=== PATIENT | female | born 1995 | race Caucasian/White ===

== ENCOUNTER 2017-09-20 11:39 | Emergency (ER) | payer OTHER ==
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
[2017-09-20 15:43] VITALS: BP 123/84
== END 2017-09-20 15:39 | disposition home or self-care (01) ==
LOC: ED 11:39
DX: Z11.4 Encounter for screening for human immunodeficiency virus [HIV] (principal); Z91.410 Personal history of adult physical and sexual abuse
CPT/HCPCS: 36415; 86703; 99282

== ENCOUNTER → 2019-02-02 22:57 | Emergency (ER) | payer OTHER ==
--- NOTE | 2019-02-02 23:41 | ED ---
Palpitations / Dysrhythmia - HPI Summary HPI Summary: The patient is a 23 y/o F presenting to [facility] with a chief complaint of heart palpitations tonight. She reports that she's been busy at work so her eating habits have been unhealthy. She states that today she took caffeine pills to stay awake at work, and then she wanted to go to sleep when she got home so she took prescribed Hydroxyzine, but then she began to have heart palpitations. She is feeling better in the ED. She denies CP, SOB, and dizziness. No recent drug use. No other hx. - History of Current Complaint Chief Complaint: EDDysrhythmPalp Time Seen by Provider: 02/02/19 23:34 Hx Obtained From: Patient Onset/Duration: Sudden Onset, Lasting Hours, Resolved Severity Initially: Moderate Severity Currently: None Character: Fast Aggravating: Nothing Alleviating: Nothing - Allergy/Home Medications Allergies/Adverse Reactions: Allergies Allergy/AdvReac Type Severity Reaction Status Date / Time No Known Allergies Allergy Verified 02/02/19 23:09 PMH/Surg Hx/FS Hx/Imm Hx Endocrine/Hematology History: Denies: Hx Diabetes Cardiovascular History: Denies: Hx Hypertension Sensory History: Denies: Hx Deafness Opthamlomology History: Denies: Hx Legally Blind EENT History: Denies: Hx Deafness - Surgical History Surgery Procedure, Year, and Place: none Infectious Disease History: No Infectious Disease History: Denies: Traveled Outside the US in Last 30 Days - Family History Known Family History: Negative: Cardiac Disease, Hypertension, Diabetes - Social History Alcohol Use: None Hx Substance Use: No Substance Use Type: Reports: None Smoking Status (MU): Unknown if Ever Smoked Do You Chew or Dip Tobacco: No Have You Chewed or Dipped Tobacco in the LAST YEAR: No Have You Smoked in the Last Year: No Review of Systems Positive: Palpitations. Negative: Chest Pain Negative: Shortness Of Breath Positive: Other - change in diet Neurological: Other - NEGATIVE: dizziness All Other Systems Reviewed And Are Negative: Yes Physical Exam - Summary Physical Exam Summary: Appearance: Well appearing, no pain distress Skin: warm, dry, reflects adequate perfusion Head/face: normal Eyes: EOMI, GIOVANI ENT: normal Neck: supple, non-tender Respiratory: CTA, breath sounds present Cardiovascular: RRR, pulses symmetrical Abdomen: non-tender, soft Musculoskeletal: normal, strength/ROM intact Neuro: normal, sensory motor intact, A&Ox3 Triage Information Reviewed: Yes Vital Signs On Initial Exam: Initial Vitals Temp Pulse Resp BP Pulse Ox 97.4 F 80 16 106/87 99 02/02/19 23:00 02/02/19 23:00 02/02/19 23:00 02/02/19 23:00 02/02/19 23:00 Vital Signs Reviewed: Yes Diagnostics - Vital Signs Vital Signs Temp Pulse Resp BP Pulse Ox 02/02/19 23:00 97.4 F 80 16 106/87 99 - Laboratory Lab Statement: Any lab studies that have been ordered have been reviewed, and results considered in the medical decision making process. - EKG 2306 Cardiac Rate: NL - 75 BPM EKG Rhythm: Sinus Rhythm Summary of EKG Findings: No ST elevations Course/Dx - Course Assessment/Plan: The patient is a 23 y/o F presenting to [facility] with a chief complaint of heart palpitations tonight after not eating well lately and consuming caffeine pills early in the day followed by Hydroxyzine at night. Upon physical exam, there are no acute abnormalities. She declines blood work at this time. EKG is normal. Since she is feeling better, she will be discharged home at this time. She is diagnosed with heart palpitations and drug reaction. She agrees with plan for discharge and understands need for return to the ED for any new or worsening symptoms. - Diagnoses Differential Diagnosis/HQI/PQRI: Positive: Hyperventilation, Panic Disorder Provider Diagnoses: Heart palpitations, Drug reaction Discharge - Sign-Out/Discharge Documenting (check all that apply): Patient Departure - Patient will be discharged home. Patient Received Moderate/Deep Sedation with Procedure: No - Discharge Plan Condition: Stable Disposition: HOME Patient Education Materials: Heart Palpitations (DC) Referrals: [facility]IAN REFERRAL [Outside] - 3 Days Additional Instructions: Follow up with your primary care provider in 2-3 days. RETURN TO THE EMERGENCY DEPARTMENT FOR ANY NEW OR WORSENING SYMPTOMS. - Billing Disposition and Condition Condition: STABLE Disposition: Home - Attestation Statements Document Initiated by Scribe: Yes Documenting Scribe: Carmen Mata Provider For Whom Rumaibe is Documenting (Include Credential): Dr. Renzo Murphy MD Scribe Attestation: Carmen Maza scribed for Dr. Renzo Murphy MD on 02/02/19 at 4916. Scribe Documentation Reviewed: Yes Provider Attestation: The documentation as recorded by the scribe, Carmen Mata accurately reflects the service I personally performed and the decisions made by me, Dr. Renzo Murphy MD Status of Scribe Document: Viewed
[2019-02-02 23:44] VITALS: BP 0/0
== END | disposition home or self-care (01) ==
LOC: ED 22:57
DX: T50.995A Adverse effect of other drugs, medicaments and biological substances, initial encounter (principal); R00.2 Palpitations; Y92.9 Unspecified place or not applicable
CPT/HCPCS: 93005; 99282

== ENCOUNTER 2019-07-12 19:24 | Inpatient (IN) | payer MEDICAID ==
[2019-07-12 20:10] LABS: Urine Appearance Clear; Urine Bilirubin Negative (Negative); Urine Blood Negative (Negative); Urine Color Yellow; Urine Glucose Negative (Negative); Urine Ketones Negative (Negative); Urine Nitrite Negative (Negative); Urine Protein Negative (Negative); Urine Specific Gravity 1.018 (1.010-1.030); Urine Urobilinogen Negative (Negative)
[2019-07-12 20:16] LABS: ABS Basophils 0.1 10^3/ul (0-0.2); ABS Lymphocytes 0.8 10^3/ul (1.0-4.8); ABS Monocytes 0.5 10^3/ul (0-0.8); ABS Neutrophils 4.6 10^3/ul (1.5-7.7); Eosinophil % 0.1 %; Hematocrit 40 % (35-47); Hemoglobin 13.6 g/dL (12.0-16.0); Lymphocyte % 13.4 %; Mean Corpuscular HGB Conc 34 g/dL (31-36); Mean Corpuscular Hemoglobin 32 pg (27-31); Mean Corpuscular Volume 95 fL (80-97); Mean Platelet Volume 8.8 fL (7.4-10.4); Nucleated Red Blood Cells % 0.1; Platelet Count 200 10^3/uL (150-450); Red Blood Count 4.19 10^6 /uL (3.70-4.87); Red Cell Distribution Width 16 % (10-15); White Blood Count 5.9 10^3/uL (3.5-10.8)
--- NOTE | 2019-07-12 20:19 | ED ---
Medical Screening - HPI Summary HPI Summary: Patient advised by therapist to come to the ED for mental health evaluation. Patient has history of eating disorder, alternating between bulimia and anorexia. Patient is currently in a binging and purging cycle with excessive exercising. Patient states she exercises about 3 hours a day, and for the past 3 days has been binging and purging all day. Also states she vomited a blood clot a couple times. Denies SI or HI. States she has been unable to stop the binging and purging cycle. Patient states she is eating sucralose powder to avoid caloric intake. States she is [place] possibilities yet. Denies fever, cough, sore throat, CP, SOB, N/V/V abdominal pain, change in urine, change in BM. Denies recent EtOH or recreational drug use. Positive smoker. - History of Current Complaint Chief Complaint: EDMentalHealth Stated Complaint: MHE PER PT Time Seen by Provider: 07/12/19 19:46 Onset/Duration: Started Days Ago PMH/Surg Hx/FS Hx/Imm Hx Endocrine/Hematology History: Denies: Hx Diabetes Cardiovascular History: Denies: Hx Hypertension History: Denies: Hx Dialysis Sensory History: Denies: Hx Legally Blind, Hx Deafness Opthamlomology History: Denies: Hx Legally Blind EENT History: Denies: Hx Deafness Neurological History: Denies: Hx Dementia - Surgical History Surgery Procedure, Year, and Place: none Infectious Disease History: No Infectious Disease History: Denies: Traveled Outside the US in Last 30 Days - Family History Known Family History: Positive: None Negative: Cardiac Disease, Hypertension, Diabetes - Social History Alcohol Use: None Hx Substance Use: No Substance Use Type: Reports: None Smoking Status (MU): Light Every Day Tobacco Smoker Have You Smoked in the Last Year: No Review of Systems Constitutional: Negative Eyes: Negative ENT: Negative Cardiovascular: Negative Respiratory: Negative Positive: Vomiting Genitourinary: Negative Musculoskeletal: Negative Skin: Negative Neurological: Negative Psychological: Normal All Other Systems Reviewed And Are Negative: Yes Physical Exam Triage Information Reviewed: Yes Vital Signs On Initial Exam: Initial Vitals Temp Pulse Resp BP Pulse Ox 98.1 F 79 15 132/79 100 07/12/19 19:26 07/12/19 19:26 07/12/19 19:26 07/12/19 19:26 07/12/19 19:26 Vital Signs Reviewed: Yes Appearance: Positive: Well-Appearing Skin: Positive: Warm Head/Face: Positive: Normal Head/Face Inspection Eyes: Positive: Normal ENT: Positive: Normal ENT inspection Neck: Positive: Supple Respiratory/Lung Sounds: Positive: Clear to Auscultation Cardiovascular: Positive: Normal Abdomen Description: Positive: Nontender Musculoskeletal: Positive: Normal Neurological: Positive: Normal Psychiatric: Positive: Normal AVPU Assessment: Alert - [place] Coma Scale Best Eye Response: 4 - Spontaneous Best Motor Response: 6 - Obeys Commands Best Verbal Response: 5 - Oriented Coma Scale Total: 15 Procedures - Sedation Patient Received Moderate/Deep Sedation with Procedure: No Diagnostics - Vital Signs Vital Signs Temp Pulse Resp BP Pulse Ox 07/12/19 19:26 98.1 F 79 15 132/79 100 - Laboratory Lab Results: Lab Results 07/12/19 Range/Units 19:49 Urine Color Yellow Urine Appearance Clear Urine pH 8.0 (5-9) Ur Specific Malone 1.018 (1.010-1.030) Urine Protein Negative (Negative) Urine Ketones Negative (Negative) Urine Blood Negative (Negative) Urine Nitrate Negative (Negative) Urine Bilirubin Negative (Negative) Urine Urobilinogen Negative (Negative) Ur Leukocyte Esterase Negative (Negative) Urine Glucose Negative (Negative) Result Diagrams: 07/12/19 20:06 07/12/19 20:06 Lab Statement: Any lab studies that have been ordered have been reviewed, and results considered in the medical decision making process. Course/Dx - Course Course Of Treatment: Patient advised by therapist to come to the ED for mental health evaluation. Patient has history of eating disorder, alternating between bulimia and anorexia. Patient is currently in a binging and purging cycle with excessive exercising. Patient states she exercises about 3 hours a day, and for the past 3 days has been binging and purging all day. Also states she vomited a blood clot a couple times. Denies SI or HI. States she has been unable to stop the binging and purging cycle. Patient states she is eating sucralose powder to avoid caloric intake. States she is waiting [place] definite possibilities yet. Denies fever, cough, sore throat, CP, SOB, N/V/V abdominal pain, change in urine, change in BM. Vital signs within normal limits. Labs within normal limits. Mental health evaluation recommends admission to [facility]. - Diagnoses Provider Diagnoses: Bulimia nervosa Discharge ED - Sign-Out/Discharge Documenting (check all that apply): Patient Departure - Discharge Plan Condition: Stable Disposition: PSYCHIATRIC FACILITY-[facility] Referrals: No Primary Care Phys,NOPCP [Primary Care Provider] - - Billing Disposition and Condition Condition: STABLE Disposition: Psychiatric Facility [facility]
[2019-07-12 20:32] LABS: Urine Benzodiazepine Screen None Detected (None Detect); Urine Opiates Screen None Detected (None Detect)
[2019-07-12 20:39] LABS: ALT 20 U/L (7-52); AST 24 U/L (13-39); Albumin 4.7 g/dL (3.2-5.2); Albumin/Globulin Ratio 1.8 (1-3); Alkaline Phosphatase 60 U/L (34-104); Anion Gap 6 mmol/L (2-11); BUN/Creatinine Ratio 22.4 (8-20); Blood Urea Nitrogen 17 mg/dL (6-24); CO2 Carbon Dioxide 31 mmol/L (22-32); Calcium 9.8 mg/dL (8.6-10.3); Chloride 104 mmol/L (101-111); EGFR African American 116.2 (>60); EGFR Non-African American 96.1 (>60); Globulin 2.6 g/dL (2-4); Glucose 118 mg/dL (70-100); Potassium 3.8 mmol/L (3.5-5.0); Sodium 141 mmol/L (135-145); Total Protein 7.3 g/dL (6.4-8.9)
[2019-07-12 20:53] LABS: Acetaminophen < 15 mcg/mL; Alcohol < 10 mg/dL (<10); Salicylate < 2.50 mg/dL (<30)
[2019-07-12 21:08] LABS: TSH (Thyroid Stimulating Horm) 1.56 mcIU/mL (0.34-5.60)
[2019-07-13] MEDS: Nicotine* 2MG (FRUIT FLAVOR) GUM PO PRN ×3 (00:11→11:59)
[2019-07-13 03:21] VITALS: BP 105/54
[2019-07-13] MEDS ORDERED: Al Hydrox/Mg Hydrox/Simet LIQ* 30 ML UDC PO PRN (04:14)
[2019-07-13] MEDS ORDERED: Acetaminophen TAB* 325 MG PO PRN (04:14)
[2019-07-13] MEDS ORDERED: Vitamin THERAPEUTIC TAB PO SCH (09:00)
[2019-07-13] MEDS ORDERED: Naltrexone TAB* 50 MG TAB PO SCH (12:00)
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
== END 2019-07-13 14:30 | disposition home or self-care (01) | DRG 759 ==
LOC: ED 19:24 → BSU 07-13 01:55 → ED 07-13 03:20
PROVIDERS: ADMIT Psychiatry & Neurology Psychiatry; ATTEND Psychiatry & Neurology Psychiatry
DX: F50.2 Bulimia nervosa (principal); F32.9 Major depressive disorder, single episode, unspecified; F42.9 Obsessive-compulsive disorder, unspecified; F41.1 Generalized anxiety disorder; F17.290 Nicotine dependence, other tobacco product, uncomplicated; F17.210 Nicotine dependence, cigarettes, uncomplicated; Z91.5 Personal history of self-harm; Z68.21 Body mass index [BMI] 21.0-21.9, adult
CPT/HCPCS: 36415; 80053; 80307; 80320; 80329; 81003; 84443; 85025; 99238; 99284; A9270-GY; G0480

== ENCOUNTER 2020-03-23 23:11 | Inpatient (IN) ==
[2020-03-24 00:38] LABS: Urine Benzodiazepine Screen None Detected (None Detect); Urine Cannabinoids Screen None Detected (None Detect); Urine Opiates Screen None Detected (None Detect)
[2020-03-24 00:47] LABS: Urine Appearance Cloudy; Urine Bilirubin Negative (Negative); Urine Blood 2+ (Negative); Urine Color Amber; Urine Glucose Negative (Negative); Urine Ketones Negative (Negative); Urine Nitrite Positive (Negative); Urine Protein Negative (Negative); Urine Specific Gravity 1.027 (1.010-1.030); Urine Urobilinogen Negative (Negative)
[2020-03-24 00:53] LABS: ABS Lymphocytes 1.2 10^3/ul (1.0-4.8); ABS Monocytes 0.3 10^3/ul (0-0.8); ABS Neutrophils 2.9 10^3/ul (1.5-7.7); Eosinophil % 0.6 %; Hematocrit 41 % (35-47); Hemoglobin 14.2 g/dL (12.0-16.0); Lymphocyte % 27.3 %; Mean Corpuscular HGB Conc 35 g/dL (31-36); Mean Corpuscular Hemoglobin 32 pg (27-31); Mean Corpuscular Volume 92 fL (80-97); Mean Platelet Volume 8.8 fL (7.4-10.4); Nucleated Red Blood Cells % 0.1; Platelet Count 169 10^3/uL (150-450); Red Cell Distribution Width 13 % (10-15); White Blood Count 4.5 10^3/uL (3.5-10.8)
[2020-03-24 01:03] LABS: Urine Bacteria 1+ (Absent); Urine Red Blood Cell Trace(0-2/hpf) (Absent); Urine Squamous Epithelial Cell Present (Absent); Urine White Blood Cell 2+(11-20/hpf) (Absent)
[2020-03-24 01:16] LABS: ALT 12 U/L (7-52); AST 15 U/L (13-39); Albumin 4.8 g/dL (3.2-5.2); Alkaline Phosphatase 52 U/L (34-104); Anion Gap 5 mmol/L (2-11); BUN/Creatinine Ratio 13.6 (8-20); Blood Urea Nitrogen 14 mg/dL (6-24); CO2 Carbon Dioxide 28 mmol/L (22-32); Calcium 9.8 mg/dL (8.6-10.3); Chloride 104 mmol/L (101-111); EGFR African American 81.1 (>60); Globulin 2.4 g/dL (2-4); Glucose 99 mg/dL (70-100); Potassium 3.8 mmol/L (3.5-5.0); Sodium 137 mmol/L (135-145); Total Protein 7.2 g/dL (6.4-8.9)
[2020-03-24 01:23] LABS: HCG Pregnancy < 0.60 mIU/mL
[2020-03-24 01:27] LABS: Acetaminophen < 15 mcg/mL; Alcohol, S < 10 mg/dL (<10); Salicylate < 2.50 mg/dL (<30)
[2020-03-24] MEDS ORDERED: Al Hydrox/Mg Hydrox/Simet LIQ 30 ML UDC PO PRN (14:37)
[2020-03-24] MEDS: CMCS: Vortioxetine 10 mg TAB (NF) PO SCH (18:37)
[2020-03-25] MEDS: Vitamin THERAPEUTIC TAB PO SCH (09:45)
[2020-03-25] MEDS: CMCS: Vortioxetine 10 mg TAB (NF) PO SCH (09:45)
[2020-03-25] MEDS ORDERED: CMCS:Vortioxetine 10 mg TAB (NF) PO ONE (12:30)
[2020-03-26] MEDS: Vitamin THERAPEUTIC TAB PO SCH (10:22)
[2020-03-26] MEDS: CMCS:Vortioxetine 10 mg TAB (NF) PO SCH (10:23)
[2020-03-27 07:31] LABS: HDL Cholesterol 68.3 mg/dL
[2020-03-27] MEDS: CMCS:Vortioxetine 10 mg TAB (NF) PO SCH (08:52)
[2020-03-27] MEDS: Vitamin THERAPEUTIC TAB PO SCH (08:52)
[2020-03-28] MEDS: Vitamin THERAPEUTIC TAB PO SCH (09:58)
[2020-03-28] MEDS: CMCS:Vortioxetine 10 mg TAB (NF) PO SCH (09:58)
[2020-03-29 08:09] VITALS: BP 100/59
[2020-03-29] MEDS: CMCS:Vortioxetine 10 mg TAB (NF) PO SCH (09:54)
[2020-03-29] MEDS: Vitamin THERAPEUTIC TAB PO SCH (09:54)
== END 2020-03-29 11:05 | disposition home or self-care (01) | DRG 751 ==
LOC: ED 23:11 → BSU 03-24 14:03
PROVIDERS: ADMIT Psychiatry & Neurology Psychiatry; ATTEND Psychiatry & Neurology Psychiatry